=== PATIENT | male | born 1980 | race Caucasian/White ===

== ENCOUNTER 2017-06-21 16:16 | Emergency (ER) | payer SELFPAY ==
[2017-06-21] MEDS ORDERED: TORADOL IM ONE (17:59)
--- NOTE | 2017-06-21 18:28 | Emergency Department Report ---
ED Upper Extremity Inj HPI - General Chief Complaint: Extremity Injury, Upper Stated Complaint: FRACUTRED RIGHT WRIST Time Seen by Provider: 06/21/17 17:30 Source: patient, EMS Mode of arrival: Ambulatory Limitations: Language Barrier - History of Present Illness Initial Comments: Patient said he went to an urgent care center where they splinted his right forearm and put him in an elbow sling. Advised him to come to the emergency room for further treatment MD Complaint: Injury to:: right, forearm Onset/Timin -: hour(s) (ago) Time: 15:30 Other Extremity Injury: Wrist: Right, Forearm: Right Other Injuries: none Handedness: right Place: work Improves With: none Worsens With: movement of extremity Context: fall (from a 7 foot ladder) Associated Symptoms: denies other symptoms Treatments Prior to Arrival: splint - Related Data Previous Rx's Medication Instructions Recorded Last Taken Type oxyCODONE /ACETAMINOPHEN [Percocet 1 tab PO Q8HR PRN #9 tablet MDD 3 06/21/17 Unknown Rx 5/325] Allergies Allergy/AdvReac Type Severity Reaction Status Date / Time No Known Allergies Allergy Unverified 06/21/17 16:18 ED Review of Systems ROS: Stated complaint: FRACUTRED RIGHT WRIST Other details as noted in HPI Comment: All other systems reviewed and negative ED Past Medical Hx - Past Medical History Previous Medical History?: No - Surgical History Past Surgical History?: No - Medications Home Medications: Home Medications Medication Instructions Recorded Confirmed Last Taken Type oxyCODONE /ACETAMINOPHEN [Percocet 1 tab PO Q8HR PRN #9 tablet MDD 3 06/21/17 Unknown Rx 5/325] ED Physical Exam - General Limitations: Language Barrier General appearance: alert, in no apparent distress - Head Head exam: Present: atraumatic, normocephalic - Eye Eye exam: Present: normal appearance - ENT ENT exam: Present: mucous membranes moist - Neck Neck exam: Present: normal inspection - Respiratory Respiratory exam: Present: normal lung sounds bilaterally. Absent: respiratory distress - Cardiovascular Cardiovascular Exam: Present: regular rate, normal rhythm. Absent: systolic murmur, diastolic murmur, rubs, gallop - GI/Abdominal GI/Abdominal exam: Present: soft, normal bowel sounds - Rectal Rectal exam: Present: deferred - Extremities Exam Extremities exam: Present: other (right forearm ttp and deformed) - Back Exam Back exam: Present: normal inspection, full ROM - Neurological Exam Neurological exam: Present: alert, oriented X3 - Psychiatric Psychiatric exam: Present: normal affect, normal mood - Skin Skin exam: Present: warm, dry ED Course Vital Signs 06/21/17 16:18 Temperature 98.4 F Pulse Rate 93 H Respiratory 18 Rate Blood Pressure 137/97 O2 Sat by Pulse 99 Oximetry - Reevaluation(s) Reevaluation #1: 06/21/17 18:28 I looked at the film and he does appear to have a comminuted right radial fracture. I spoke to Dr. Gill about the patient he also looked at the film and does not think reduction at this time would be a good idea. He suggested patient be put in a sugar tong splint and have him follow up with him in his office tomorrow. I communicated this to the patient via an conference interpreter - [facility] ED Medical Decision Making - Radiology Data Radiology results: image reviewed (right comminuted distal radial fracture) Critical care attestation.: If time is entered above; I have spent that time in minutes in the direct care of this critically ill patient, excluding procedure time. ED Disposition Clinical Impression: Distal radius fracture, right Disposition: [id number] TO HOME OR SELFCARE Is pt being admited?: No Does the pt Need Aspirin: No Condition: Stable Instructions: Arm Fracture in Adults (ED) Prescriptions: oxyCODONE /ACETAMINOPHEN [Percocet 5/325] 1 tab PO Q8HR PRN #9 tablet MDD 3 PRN Reason: Pain Referrals: HIGINIO LAKE MD [Primary Care Provider] - 3-5 Days ZENY GILL MD [Staff Physician] - 24 Hours (comminuted distal radial fracture) Forms: Work/School Release Form(ED) Time of Disposition: 18:45 Print Language: SPANISH
[2017-06-21 20:03] VITALS: BP 129/82
--- NOTE | 2017-06-21 20:11 | XRay Report ---
FINAL REPORT PROCEDURE: XR WRIST 3+V RT TECHNIQUE: RIGHT wrist radiographs, including AP, lateral, and oblique views. CPT 53422 HISTORY: obvious deformity, pain COMPARISON: No prior studies are available for comparison. FINDINGS: Fracture (s) and/or Dislocation(s): There is an acute comminuted fracture involving the distal radial metaphysis with the posterior displacement and angulation of the fragments. Joint space(s): Widening of the distal radial ulnar joint spaces noted.. Soft tissues: Normal . Bone mineralization: Normal . Foreign bodies: None . IMPRESSION: Acute comminuted fracture distal radial metaphysis with dislocation of distal radioulnar joint..
== END 2017-06-21 20:00 | disposition home or self-care (01) ==
LOC: ED 16:16
DX: S52.591A Other fractures of lower end of right radius, initial encounter for closed fracture (principal); W11.XXXA Fall on and from ladder, initial encounter; Y93.89 Activity, other specified; Y99.0 Civilian activity done for income or pay; Y92.69 Other specified industrial and construction area as the place of occurrence of the external cause
CPT/HCPCS: 73110; 96372; 99284; J1885

== ENCOUNTER 2017-06-30 07:56 | Day surgery (SDC) | payer OTHER ==
[~2017-06-30 07:56] MED LIST: ANCEF/STERILE WATER 2 GM/20 ML IV NR
--- NOTE | 2017-06-30 09:01 | Anesthesia Consultation ---
Anesthesia Consult and Med Hx Date of service: 06/30/17 - Airway Anesthetic Teeth Evaluation: Good ROM Head & Neck: Adequate Mental/Hyoid Distance: Adequate Mallampati Class: Class I Intubation Access Assessment: Good - Pulmonary Exam CTA: Yes - Cardiac Exam Cardiac Exam: RRR - Pre-Operative Health Status ASA Pre-Surgery Classification: ASA1 Proposed Anesthetic Plan: General - Pulmonary Hx Smoking: No Hx Sleep Apnea: No (RM PRE SCREEN LOW RISK) - Cardiovascular System Hx Hypertension: No - Other Systems Hx Cancer: No
[2017-06-30] MEDS ORDERED: ZOFRAN IV PRN (09:02)
[2017-06-30] MEDS ORDERED: DECADRON IV NR (09:02)
[2017-06-30] MEDS ORDERED: TORADOL IV PRN ×2 (09:02→12:24)
--- NOTE | 2017-06-30 09:02 | Anesthesia Day of Surgery ---
Anesthesia Day of Surgery - Day of Surgery Patient Examined: Yes Patient H&P Reviewed: Yes Patient is NPO: Yes
[2017-06-30] MEDS ORDERED: MARCAINE 0.25% INFILTRATI ONE ×2 (09:11→09:31)
[2017-06-30] MEDS ORDERED: XYLOCAINE 1% 20 mL ONE (09:12)
[2017-06-30] MEDS ORDERED: SUBLIMAZE ONE (09:56)
[2017-06-30] MEDS ORDERED: XYLOCAINE MPF 2% ONE (09:56)
[2017-06-30] MEDS ORDERED: DIPRIVAN 10 MG/ML IV ONE (09:56)
[2017-06-30] MEDS ORDERED: NEOSPORIN GU IR ONE (09:57)
[2017-06-30] MEDS ORDERED: MARCAINE 0.5% INFILTRATI NR (10:00)
[2017-06-30] MEDS ORDERED: NACL 0.9% 1000 ML 1,000 ML IV SCH (10:00)
[2017-06-30] MEDS ORDERED: VERSED IV NR (10:00)
[2017-06-30] MEDS ORDERED: NACL P/F VIAL (10 ML) INFILTRATI NR (10:00)
[2017-06-30] MEDS ORDERED: NACL 0.9% 1000 ML IR ONE (10:50)
[2017-06-30] MEDS ORDERED: DILAUDID ONE (11:05)
[2017-06-30] MEDS ORDERED: NACL 0.9% 1000 ML 1,000 ML ONE (11:39)
--- NOTE | 2017-06-30 11:53 | Post Anesthesia Evaluation ---
- Post Anesthesia Evaluation Patient Participated: Yes Airway Patent: Yes Stable Respiratory Function: Yes Nausea/Vomiting: No Temp > 96.8F: Yes Pain Manageable: Yes Adequeate Hydration: Yes Anesthesia Complications: No Block Receding Appropriately: Yes Patient on Ventilator: No
--- NOTE | 2017-06-30 11:53 | Procedure Note ---
Date of procedure: 06/30/17 Pre-op diagnosis: displaced right distal radius fracture Post-op diagnosis: same Procedure: Open reduction internal fixation right distal radius Procedure The patient was brought to the OR after being given a axillary nerve block for postop pain management measures placed on the OR table in supine position this was followed by an induction with Mac anesthesia Patient's right upper extremity was prepped and draped in the usual sterile manner. A timeout procedure was done to identify the patient and the correct operative site. The arm was exsanguinated followed by inflation of the pneumatic tourniquet to 250 mmHg a volar incision was made over the distal radius was taken down sharply through skin and subcutaneous the flexor carpi radialis tendon was identified The interval was developed down to the quadratus tendon using a periosteal elevator the muscle and tendon were stripped from the distal radius which brought us in contact with the fracture site patient was noted to have some comminution along the volar surface which was manipulated into a more reduced position this was then held in place with a small locked plate temporary fixation with K wires we were done AP and lateral view was obtained and showed good reduction at the fracture and placement of the plate Screws of appropriate length were inserted distally as well as proximally again AP and lateral views were obtained showing good reduction of the fracture and placement of a screw was the wound was next copiously irrigated and was closed in a standard routine fashion. Dressings were applied the patient tolerated the procedure there were no complications he was sent to postanesthesia recovery in stable condition Anesthesia: MAC, regional Surgeon: ZENY TEAGUE Estimated blood loss: minimal Pathology: none Condition: stable Disposition: PACU
[2017-06-30] MEDS ORDERED: NORCO 7.5/325 PO PRN (12:01)
[2017-06-30] MEDS: MORPHINE IV PRN ×2 (12:05→12:21)
[2017-06-30] MEDS ORDERED: SUBLIMAZE IV PRN (12:24)
--- NOTE | 2017-06-30 12:24 | Post Anesthesia Evaluation ---
- Post Anesthesia Evaluation Patient Participated: Yes Airway Patent: Yes Stable Respiratory Function: Yes Nausea/Vomiting: No Temp > 96.8F: Yes Pain Manageable: Yes Adequeate Hydration: Yes Anesthesia Complications: No
[2017-06-30 13:09] VITALS: BP 135/95
--- NOTE | 2017-06-30 18:00 | XRay Report ---
FINAL REPORT EXAM: XR WRIST 3+V RT HISTORY: ORIF RT WRIST/RT WRIST FX TECHNIQUE: Three fluoroscopic views of the right wrist PRIORS: None. FINDINGS: Intraoperative fluoroscopic films demonstrate placement of surgical plate and screws bridging previously described fracture of the distal radius. Alignment is near anatomic. Hardware demonstrates expected positioning. IMPRESSION: Fluoroscopic views demonstrating ORIF distal radial fracture
--- NOTE | 2017-06-30 21:35 | XRay Report ---
FINAL REPORT EXAM: XR WRIST 2V RT HISTORY: RT WRIST FX TECHNIQUE: Two fluoroscopic views of the right wrist PRIORS: None. FINDINGS: Fluoroscopic views demonstrate distal radial fracture with fracture of the are styloid. Please see operative report for further details IMPRESSION: Fluoroscopic views demonstrating distal radial fracture and fracture of the ulnar styloid
== END 2017-06-30 14:20 | disposition home or self-care (01) ==
LOC: OR 07:56
PROVIDERS: ATTEND Orthopaedic Surgery
DX: S52.501A Unspecified fracture of the lower end of right radius, initial encounter for closed fracture (principal); X58.XXXA Exposure to other specified factors, initial encounter; Y93.89 Activity, other specified; Y92.89 Other specified places as the place of occurrence of the external cause; Y99.8 Other external cause status
CPT/HCPCS: 25607; 73100; 73110; C1713; J0690; J1100; J1170; J1885; J2250; J2270; J2704; J3010; J7030; 64417

== ENCOUNTER 2017-10-12 10:08 | Outpatient (CLI) | payer OTHER ==
--- NOTE | 2017-10-12 13:44 | XRay Report ---
RIGHT WRIST, 4 VIEWS: History: Unspecified fracture of the lower end of right radius. The internally fixated distal radial fracture is unchanged in position or alignment since the operative films dated 06/30/17. Ulnar styloid fracture is also unchanged. The carpal bones are in appropriate relationship. No new fracture is appreciated. IMPRESSION: Healing distal radial and ulnar fractures.
== END 2017-10-12 10:09 | disposition home or self-care (01) ==
LOC: XRAY 10:08
PROVIDERS: ATTEND Orthopaedic Surgery
DX: M25.531 Pain in right wrist (principal); S52.501D Unspecified fracture of the lower end of right radius, subsequent encounter for closed fracture with routine healing; S52.611D Displaced fracture of right ulna styloid process, subsequent encounter for closed fracture with routine healing; X58.XXXD Exposure to other specified factors, subsequent encounter